=== PATIENT | male | born 1985 | race Hispanic/Latino ===

== ENCOUNTER 2017-09-17 20:27 | Emergency (ER) | payer SELFPAY ==
[2017-09-17] MEDS ORDERED: NACL 0.9% 1000 ML 1,000 ML IV ONE (20:53)
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
[2017-09-17 21:09] LABS: Basophils # (Auto) 0.1 K/mm3 (0.0-0.1); Basophils % (Auto) 0.6 % (0.0-1.8); Eosinophils # (Auto) 0.2 K/mm3 (0.0-0.4); Eosinophils % (Auto) 1.9 % (0.0-4.3); Hematocrit 45.1 % (35.5-45.6); Hemoglobin 15.4 gm/dl (11.8-15.2); Lymphocytes # (Auto) 1.7 K/mm3 (1.2-5.4); Lymphocytes % (Auto) 17.4 % (13.4-35.0); Mean Corpuscular HGB Conc 34 % (32-34); Mean Corpuscular Hemoglobin 29 pg (28-32); Mean Corpuscular Volume 84 fl (84-94); Monocytes # (Auto) 0.8 K/mm3 (0.0-0.8); Monocytes % (Auto) 8.7 % (0.0-7.3); Platelet Count 223 K/mm3 (140-440); Red Blood Count 5.39 M/mm3 (3.65-5.03); Red Cell Distribution Width 13.8 % (13.2-15.2)
[2017-09-17 21:27] LABS: Alanine Aminotransferase 26 units/L (7-56); Albumin 4.3 g/dL (3.9-5); BUN/Creatinine Ratio 20; Blood Urea Nitrogen 18 mg/dL (9-20); Calcium 8.6 mg/dL (8.4-10.2); Hemolysis Index 5
[2017-09-17] MEDS ORDERED: NORMODYNE IV ONE (21:35)
[2017-09-17 23:16] VITALS: BP 143/102
== END 2017-09-17 23:15 | disposition left against medical advice (07) ==
LOC: ED 20:27
DX: R56.9 Unspecified convulsions (principal); F11.10 Opioid abuse, uncomplicated
CPT/HCPCS: 36415; 80053; 85025; 96360; 99284; G0480; J7030; 80320